=== PATIENT | female | born 1945 | race African-American/Black ===

== ENCOUNTER → 2017-08-14 | Outpatient (CLI) | payer OTHER | LOC: RAD 08:41 | DX: Z12.31 Encounter for screening mammogram for malignant neoplasm of breast (principal) ==

== ENCOUNTER → 2020-06-23 | Outpatient (CLI) | payer OTHER ==
--- NOTE | 2020-06-23 13:04 | 2DMMODE ---
[facility] [place] [address] 2 D/M-MODE ECHOCARDIOGRAM Name: RUBEN RAZOBRIANMAXIMILIAN Ofelia Room #: [facility]#: [id number] Admission: 06/23/20 Attend Phys: Anil Sin MD Discharge: Date of : 47 Report #: [id number] THIS REPORT FOR: cc: Anil Sin MD, Neal A. MD Park, Jin S. MD ~ APPROVED REPORT Study performed: 06/23/2020 11:41:57 EXAM: Comprehensive 2D, Doppler, and color-flow Echocardiogram Patient Location: Out-Patient Room #: Echo lab 2 Status: routine BSA: 1.49 HR: 88 bpm BP: 132/68 mmHg Rhythm: NSR Other Information Study Quality: Good Indications Diabetes Hypertension/HDD 2D Dimensions RVDd: 23.17 mm IVSd: 7.99 (7-11mm) LVOT Diam: 17.76 (18-24mm) LVDd: 39.91 mm PWd: 8.48 (7-11mm) Ascending Ao: 29.09 (22-36mm) LVDs: 24.80 (25-40mm) Aortic Root: 26.79 mm IVC: 16.00 mm Volumes Left Atrial Volume (Systole) Single Plane 4CH: 19.71 mL Single Plane 2CH: 25.95 mL LA ESV Index: 17.00 mL/m2 Aortic Valve AoV Peak Tad.: 1.26 m/s AO Peak Gr.: 6.31 mmHg LVOT Max P.20 mmHg LVOT Max V: 0.89 m/s THELMA Vmax: 1.76 cm2 [facility] [address] [address] 2 D/M-MODE ECHOCARDIOGRAM Name: JALEESA SMITH Room #: [facility]#: [id number] Admission: 06/23/20 Attend Phys: Anil Sin, Discharge: Date of : 47 Report #: [id number] Mitral Valve E/A Ratio: 0.8 MV Decel. Time: 204.56 ms MV E Max Tad.: 1.01 m/s MV A Tad.: 1.27 m/s MV PHT: 59.32 ms IVRT: 106.11 ms Pulmonary Valve PV Peak Tad.: 1.04 m/s PV Peak Gr.: 4.31 mmHg Pulmonary Vein P Vein S: 0.58 m/s P Vein A: 0.36 m/s P Vein D: 0.36 m/s P Vein A Dur.: 96.9 msec P Vein S/D Ratio: 1.61 Tricuspid Valve TR Peak Tad.: 2.59 m/s TR Peak Gr.: 26.86 mmHg PA Pressure: 32.00 mmHg Left Ventricle The left ventricle is normal size. There is normal LV segmental wall motion. There is normal left ventricular wall thickness. The left ventricular systolic function is normal. The left ventricular ejection fraction is within the normal range. LVEF is 55-60%. Grade I - abnormal relaxation pattern. Right Ventricle The right ventricle is normal size. The right ventricular systolic function is normal. Atria The left atrium size is normal. The right atrium size is normal. Aortic Valve The aortic valve is normal in structure. No aortic regurgitation is present. There is no aortic valvular stenosis. Mitral Valve The mitral valve is normal in structure. There is no mitral valve regurgitation noted. No evidence of mitral valve stenosis. Tricuspid Valve [facility] [address] [address] 2 D/M-MODE ECHOCARDIOGRAM Name: MIRANDA VEDA RAZODWAYNEMAXIMILIAN Gilbert Room #: [facility]#: [id number] Admission: 06/23/20 Attend Phys: Anil Sin, Discharge: Date of : 47 Report #: [id number] The tricuspid valve is normal in structure. There is trace tricuspid regurgitation. Estimated PAP 32 mmHg. There is mild pulmonary hypertension. Pulmonic Valve The pulmonary valve is normal in structure. Trace pulmonic regurgitation. Great Vessels The aortic root is normal in size. IVC is normal in size and collapses >50% with inspiration. Pericardium There is no pericardial effusion. <Conclusion> The left ventricle is normal size. There is normal left ventricular wall thickness. The left ventricular systolic function is normal. Grade I - abnormal relaxation pattern. The right ventricle is normal size. The left atrium size is normal. The aortic valve is normal in structure. There is no mitral valve regurgitation noted. There is trace tricuspid regurgitation. Estimated PAP 32 mmHg. <ELECTRONICALLY SIGNED> By: Jason Freitas MD 06/23/20 1304 1304 1304 Jason Freitas MD /INF
== END ==
LOC: ULTRA 10:21
PROVIDERS: ATTEND Family Medicine
DX: I27.20 Pulmonary hypertension, unspecified (principal); I10 Essential (primary) hypertension